=== PATIENT | female | born 1990 | race Caucasian/White ===

== ENCOUNTER 2022-03-12 21:07 | Emergency (ER) | payer MEDICAID ==
[~2022-03-12] VITALS: Ht 167.6 cm; Wt 77.0 kg
[~2022-03-12 21:07] MED LIST: PREN-176 PO
[2022-03-12] MEDS ORDERED: NAPR-681 MT (23:55)
[2022-03-13] MEDS ORDERED: KETOROLAC 60MG/2ML VIAL IM ONE
[2022-03-13 00:21] VITALS: BP 134/68
== END 2022-03-13 00:35 | disposition home or self-care (01) ==
LOC: ER 21:07
DX: M25.561 Pain in right knee (principal)
CPT/HCPCS: 73562; 96372; 99283; J1885